=== PATIENT | male | born 1970 | race Two or more races ===

== ENCOUNTER 2025-03-03 04:14 | Emergency (ER) | payer OTHER ==
[~2025-03-03] VITALS: Ht 175.3 cm; Wt 61.4 kg
--- NOTE | 2025-03-03 04:31 | ECG ---
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
--- NOTE | 2025-03-03 04:43 | ED.PDOC ---
History of Present Illness HPI Comments A 54 year-old male, with a PMHX of HTN, presents to the ED via EMS with a chief complaint of general weakness as of X1 week. Per EMS, family reports patient has a loss of appetite with associated weight loss, change in color, and fatigue. Family reports the patient is "not being himself," with no associated relieving factors. There are no further complaints at this time. Patient denies N/V/D, fever, chills, dizziness, migraine, or abdominal pain. Chief Complaint: General Weakness Time Seen by MD: 04:27 Reviewed Notes: Medications, Allergies Home Meds Active Scripts Pantoprazole Sodium Sesquihydr (Protonix) 40 Mg Tab, 40 MG PO DAILY for 10 Days, #10 TAB Prov:CORTEZ PERKINS MD 03/03/25 Mode of Arrival: EMS Severity: Moderate Timing: Weeks Duration: Since onset Associated signs and symptoms loss of appetite with associated weight loss, change in color, and fatigue Past Medical History PAST MEDICAL HISTORY: HTN Surgical History: Denies all surgeries Family History Family History: Reviewed,noncontributory to illness, No family hx of Cancer, No family hx of DM, No family hx of Heart jay, No family hx of HTN, No family hx ofKidney jay, No family hx of Liver jay, No family hx of Lung jay, No family hx of Stroke Social History Smoker: Non-Smoker Alcohol: Denies ETOH Use Drugs: Denies Drug Use Lives In: Home Constitutional: reports: fatigue, weakness, others (Loss Of Appetite ); denies: chills, diaphoresis, fever, malaise, sweats EENTM: denies: blurred vision, double vision, ear bleeding, ear discharge, ear drainage, ear pain, ear ringing, eye pain, eye redness, hearing loss, mouth p ain, mouth swelling, nasal discharge, nose bleeding, nose congestion, nose pain, photophobia, tearing, throat pain, throat swelling, voice changes, others Respiratory: denies: cough, hemoptysis, orthopnea, SOB at rest, shortness of br eath, SOB with excertion, stridor, wheezing, others Cardiovascular: denies: chest pain, dizzy spells, diaphoresis, Dyspnea on exertion, edema, irregular heart beat, left arm pain, lightheadedness, palpitations, PND, syncope, others Gastrointestinal: denies: abdomen distended, abdominal pain, blood streaked bowels, constipated, diarrhea, dysphagia, difficulty swallowing, hematemesis, melena, nausea, poor appetite, poor fluid intake, rectal bleeding, rectal pain, vomiting, others Genitourinary: denies: burning, dysuria, flank pain, frequency, hematuria, incontinence, penile discharge, penile sore, pain, testicle pain, testicle swelling, urgency, others Neurological: denies: dizziness, fainting, headache, left sided numbness, left sided weakness, numbness, paresthesia, pre-existing deficit, right sided numbness, right sided weakness, seizure, speech problems, tingling, tremors, weakness, others Musculoskeletal: denies: back pain, gout, joint pain, joint swelling, muscle pain, muscle stiffness, neck pain, others Integumetry: reports: change in color; denies: bruises, change in hair/nails, dryness, laceration, lesions, lumps, rash, wounds, others Allergic/Immunocompromised: denies: Difficulty Healing, Frequent Infections, Hives, Itching, others Hematologic/Lymphatic: denies: anemia, blood clots, easy bleeding, easy bruisin g, swollen glands, others Endocrine: reports: unexplained weight loss; denies: excessive hunger, excessive sweating, excessive thirst, excessive urination, flushing, intolerance to cold, intolerance to heat, unexplained weight gain, others Psychiatric: denies: anxiety, bipolar disorder, depression, hopeless, panic dis order, schizophrenia, sleepless, suicidal, others All Other Systems: Reviewed and Negative Physical Exam General Appearance: Moderate Distress HEENT: Normal ENT Inspection, Pharynx Normal, Scleral Icterus (L), Scleral Icterus (R), TMs Normal Neck: Full Range of Motion, Non-Tender, Normal, Normal Inspection Respiratory: Chest Non-Tender, Lungs Clear, No Accessory Muscle Use, No Respiratory Distress, Normal Breath Sounds Cardiovascular: No Edema, No JVD, No Murmur, No Gallop, Normal Peripheral Pulses, Regular Rate/Rhythm Breast Exam: Deferred Gastrointestinal: No Organomegaly, Non Tender, No Pulsatile Mass, Normal Bowel Sounds, Soft Genitalia: Deferred Pelvic: Deferred Rectal: Deferred Extremities: No calf tenderness, Normal capillary refill, Normal inspection, Normal range of motion, Non-tender, No pedal edema Musculoskeletal : Apperance: Normal Neurologic: Alert, food sales clerk II-XII nml as Tested, No Motor Deficits, Normal Affect, Normal Mood, No Sensory Deficits Cerebellar Function: Normal Reflexes: Normal Skin: Dry, Normal Color, Warm Peripheral Pulses: 3+ Radial (R), 3+ Radial (L) Lymphatic: No Adenopathy Was a procedure done? Was a procedure done?: No EKG EKG : Pulse Rate (adult): 64 [place]: Normal Cardiac Rhythm: NSR Differential Dx Considerations may include: Kidney Failure, Dehydration, Fever, Flu, Constipation X-Ray, Labs, Meds, VS Vital Signs Date Time Temp Pulse Resp B/P (MAP) Pulse Ox O2 Delivery O2 Flow Rate FiO2 03/03/25 05:32 98.0 63 17 127/83 (98) 97 98.0 03/03/25 05:32 63 17 97 Room Air 03/03/25 04:44 64 03/03/25 04:20 64 03/03/25 04:15 97.9 70 16 129/86 (100) 94 97.9 Lab Test 03/03/25 06:11 03/03/25 05:15 03/03/25 05:07 Range/Units Troponin I High Sensitivity 10 9 </=54 ng/L White Blood Count 4.6 4.4-10.8 10^3/uL Red Blood Count 4.95 4.5-5.90 10^6/uL Hemoglobin 14.9 13.5-17.5 g/dL Hematocrit 43.0 41.0-53.0 % Mean Corpuscular Volume 86.8 80.0-100.0 fL Mean Corpuscular Hemoglobin 30.2 28.0-32.0 pg Mean Corpuscular Hemoglobin Concent 34.7 32.0-36.0 g/dL Red Cell Distribution Width 13.5 11.8-14.3 % Platelet Count 190 140-450 10^3/uL Mean Platelet Volume 10.0 6.9-10.8 fL Neutrophils (%) (Auto) 67.4 37.0-80.0 % Lymphocytes (%) (Auto) 24.2 10.0-50.0 % Monocytes (%) (Auto) 7.7 0.0-12.0 % Eosinophils (%) (Auto) 0.3 0.0-7.0 % Basophils (%) (Auto) 0.4 0.0-2.0 % Neutrophils # (Auto) 3.1 1.6-8.6 10 ^3/uL Lymphocytes # (Auto) 1.1 0.4-5.4 10 ^3/uL Monocytes # (Auto) 0.4 0-1.3 10 ^3/uL Eosinophils # (Auto) 0 0-0.8 10 ^3/uL Basophils # (Auto) 0 0-0.2 10 ^3/uL Nucleated Red Blood Cells 0.2 % Prothrombin Time 10.9 9.3-11.8 sec Prothrombin Time INR 1.03 0.9-1.15 Activated Partial Thromboplast Time 25.2 24.5-34.5 SEC Sodium Level 143 136-145 mmol/L Potassium Level 3.6 3.5-5.1 mmol/L Chloride Level 103 98-107 mmol/L Carbon Dioxide Level 29 20-31 mmol/L Anion Gap 11 5-15 Blood Urea Nitrogen 16 9-23 mg/dL Creatinine 0.78 0.700-1.30 mg/dL Glomerular Filtration Rate Calc 107 >90 mL/min BUN/Creatinine Ratio 20.5 H 10.0-20.0 Serum Glucose 92 74-106 mg/dL Calcium Level 10.1 8.7-10.4 mg/dL Total Bilirubin 1.0 0.2-1.0 mg/dL Aspartate Amino Transferase (AST) 85 H 13-40 U/L Alanine Aminotransferase (ALT) 200 H 7-40 U/L Alkaline Phosphatase 97 46-116 U/L Total Protein 7.3 5.7-8.2 g/dL Albumin 4.4 3.2-4.8 g/dL Lactic Acid Level 1.0 0.4-2.0 mmol/L Current Medications Medications (Trade) Dose Ordered Sig/Wesley Route Start Time Stop Time Status Last Admin Sodium Chloride 1,000 ml @ 1,000 mls/hr Q1H ONCE IVB 03/03/25 04:45 03/03/25 05:44 DC 03/03/25 05:28 Thiamine HCl 100 mg ONCE ONCE IV 03/03/25 07:00 03/03/25 07:01 DC 03/03/25 07:[address] [address] Ph: [phone] DIAGNOSTIC IMAGING Diagnostic Imaging Report : [id number] Signed PATIENT: MONISHA FERNANDEZ ACCT: [id number] UNIT: [id number] : 1970 LOC: ER ROOM / BED: / AGE / SEX: 54 / M ADM STATUS: REG ER SERVICE [id number] ORDERING PHYSICIAN: MP FARFAN MD PROCEDURE(s): CXRP - CHEST PORTABLE REASON: SOB ORDER NUMBER(s): [id number], ACCESSION NUMBER(s): [id number] CHEST RADIOGRAPH Indication: SOB Technique: Single frontal view of the chest was obtained Comparison: None IMPRESSION: Heart appears normal in size. The lungs appear clear without focal airspace opacity, effusion, or pneumothorax Patient alert. No sign of any distress. Vitals stable. Answering questions. Ambulating. Chest x-ray reviewed does not show any acute process. He is comfortable. WBC within normal limits. Hemoglobin within normal limits. Cardiac marker within normal limits. Liver enzymes elevated. Abdomen is soft nontender. CT scan of the abdomen was not needed because physical examination was pristine. Explained to the patient that he will need ultrasound of the liver. He is pain-free. He does drink alcohol. Explained to the patient that he has stopped drinking alcohol. Was told to follow up with his primary care physician. Was told to come back if there is any problem. Time of 1ST Reevaluation: 04:56 Reevaluation 1ST: Improved Time of 2ND Reevaluation: 06:53 Reevaluation 2ND: Improved Patient Education/Counseling: Diagnosis, Treatment Family Education/Counseling: No Family Present SEPSIS Sepsis Screen Date sepsis recognized/suspect: Mar 03, 2025 Time Sepsis recognized/suspect: 414 Recent Procedure: No On Antibiotic Therapy: No Respiratory Rate >20: No Heart Rate >90: No Temp<36 C (96.8 F) or >38.3 C: No SBP <90 or MAP <65 mmHG: No New Acute Mental Status Change: No Is the patient on CPAP, BIPAP,: No Physician Orders Blood Culture (03/03/25 04:38) Chest Portable (03/03/25 04:38) Vital Signs Date Time Temp Pulse Resp B/P (MAP) Pulse Ox O2 Delivery O2 Flow Rate FiO2 03/03/25 05:32 98.0 63 17 127/83 (98) 97 98.0 03/03/25 05:32 63 17 97 Room Air 03/03/25 04:44 64 03/03/25 04:20 64 03/03/25 04:15 97.9 70 16 129/86 (100) 94 97.9 Laboratory Tests Test 03/03/25 05:07 03/03/25 05:15 Lactic Acid Level 1.0 mmol/L (0.4-2.0) White Blood Count 4.6 10^3/uL (4.4-10.8) Medications Medications Dose Ordered Sig/Wesley Route Start Time Stop Time Status Last Admin Dose Admin Thiamine HCl 100 mg ONCE ONCE IV 03/03/25 07:00 03/03/25 07:01 DC 03/03/25 07:36 Departure 1 Departure Time of Disposition: 06:46 Impression: Primary Impression: Hepatitis Additional Impression: Elevated liver enzymes Disposition: HOME / SELF CARE / HOMELESS Condition: Stable e-Prescriptions Pantoprazole Sodium Sesquihydr (Protonix) 40 Mg Tab 40 MG PO DAILY for 10 Days, #10 TAB Prov: CORTEZ PERKINS MD 03/03/25 Discharged With: Self Critical Care Note Critical Care Time?: No Stability Stability form required: No Heart Score Heart Score: Heart Score Response (Comments) Value History N/A 0 EKG N/A 0 Age N/A 0 Risk Factors N/A 0 Troponin N/A 0 Total 0 I personally scribed for MP FARFAN MD (LUIS ANTONIO) on 03/03/25 at 04:43. Electronically submitted by Heide Anthony ([employer]). I personally scribed for PM FARFAN MD (LUIS ANTONIO) on 03/03/25 at 04:44. Electronically submitted by Heide Anthony ([employer]). I personally scribed for MP FARFAN MD (LUIS ANTONIO) on 03/03/25 at 05:58. Electronically submitted by Heide Anthony ([employer]). MP FARFAN MD Mar 03, 2025 04:43 CORTEZ PERKINS MD Mar 03, 2025 06:49
[2025-03-03] MEDS: SODIUM CHLORIDE 0.9% 1,000 ML IVB ONE (05:28)
[2025-03-03 05:32] VITALS: BP 127/83; PULSE 63; RESP 17; TEMP 98; O2SAT 97
[2025-03-03 05:55] LABS: Hematocrit 43.0 % (41.0-53.0); Hemoglobin 14.9 g/dL (13.5-17.5); Mean Corpuscular Hemoglobin 30.2 pg (28.0-32.0); Mean Corpuscular Volume 86.8 fL (80.0-100.0); Nucleated Red Blood Cells % 0.2 %
--- NOTE | 2025-03-03 05:55 | DVH ---
CHEST RADIOGRAPH Indication: SOB Technique: Single frontal view of the chest was obtained Comparison: None IMPRESSION: Heart appears normal in size. The lungs appear clear without focal airspace opacity, effusion, or pn eumothorax
[2025-03-03 06:09] LABS: INR 1.03 (0.9-1.15); Partial Thromboplastin Time 25.2 SEC (24.5-34.5); Prothrombin Time 10.9 sec (9.3-11.8)
[2025-03-03 06:16] LABS: Albumin 4.4 g/dL (3.2-4.8); Alkaline Phosphatase 97 U/L (46-116); Anion Gap 11 (5-15); BUN/Creatinine Ratio 20.5 (10.0-20.0); Blood Urea Nitrogen 16 mg/dL (9-23); Calcium 10.1 mg/dL (8.7-10.4); Carbon Dioxide 29 mmol/L (20-31); Chloride 103 mmol/L (98-107); Glucose 92 mg/dL (74-106); Potassium 3.6 mmol/L (3.5-5.1); Sodium 143 mmol/L (136-145); Total Protein 7.3 g/dL (5.7-8.2)
[2025-03-03 06:17] LABS: Bilirubin, Total 1.0 mg/dL (0.2-1.0)
[2025-03-03 06:21] LABS: Alanine Aminotransferase 200 U/L (7-40)
[2025-03-03] MEDS ORDERED: PANT40TA2 PO (06:49)
[2025-03-03] MEDS: THIAMINE 100mg/ml INJ (200mg/2ml VIAL) IV ONE (07:36)
== END 2025-03-03 07:48 | disposition home or self-care (01) ==
LOC: ER 04:14
DX: K75.9 Inflammatory liver disease, unspecified (principal); R74.01 Elevation of levels of liver transaminase levels; I10 Essential (primary) hypertension; Z79.899 Other long term (current) drug therapy
CPT/HCPCS: 36415; 71045; 80053; 82947; 83605; 84484; 85025; 85610; 85730; 87040; 93005; 96361; 96374; 99285; J3411; J7030